=== PATIENT | male | born 2000 | race Caucasian/White ===

== ENCOUNTER 2019-08-01 09:33 | Emergency (ER) | payer SELFPAY ==
--- NOTE | 2019-08-24 13:51 | Diagnostic Imaging Report ---
NORMA UREÑA [facility] [address] [facility].[address] [id number] Report Submission Date: Aug 01, 2019 10:04:37 AM CDT Patient Study Name: MYA SKELTON Date: Aug 01, 2019 9:41:58 AM CDT Modality Type: DX Gender: M Description: HAND 3 VIEWS OR MORE : 89 Institution: [facility] Physician: NORMA UREÑA Left hand 3 views Clinical history: Injury No visible fracture, dislocation or bone destruction. No visible radiopaque foreign bodies. Impression: Normal left hand Electronically signed on Aug 01, 2019 10:04:37 AM CDT by: Polo ZUNIGA
== END 2019-08-01 09:54 ==
LOC: ED 09:33
DX: S63.92XA Sprain of unspecified part of left wrist and hand, initial encounter (principal); W22.8XXA Striking against or struck by other objects, initial encounter
CPT/HCPCS: 73130; 99282; 99283